=== PATIENT | female | born 1975 | race Caucasian/White ===

== ENCOUNTER 2020-09-30 12:41 | Emergency (ER) | payer MEDICARE ==
[~2020-09-30] VITALS: Ht 177.8 cm; Wt 101.8 kg
[2020-09-30 12:56] VITALS: TEMP 98.8
[2020-09-30] MEDS ORDERED: ZOLOFT 100MG100 MG PO (13:06)
[2020-09-30] MEDS ORDERED: WELLBUTRIN 100100 MG PO (13:07)
[2020-09-30] MEDS ORDERED: ABILIFY5 MG PO (13:07)
[2020-09-30] MEDS ORDERED: IMITREX 5MGNAS NS (13:08)
[2020-09-30] MEDS ORDERED: MAXALT10 MG (13:08)
[2020-09-30] MEDS ORDERED: DEPAKOTE 125MG125 M1 PO (13:08)
[2020-09-30] MEDS ORDERED: IMITREX 6M6 MG/0.5 M SQ (13:09)
[2020-09-30] MEDS ORDERED: DAZIDOX20 MG PO ×2 (13:09→13:31)
[2020-09-30] MEDS ORDERED: PROAIR HFA0.09 MG/AC IH (13:10)
[2020-09-30 13:48] VITALS: BP 123/82; PULSE 87
== END 2020-09-30 13:47 | disposition home or self-care (01) ==
LOC: COL.ER 12:41
DX: G89.29 Other chronic pain (principal); M54.5 Low back pain; F32.9 Major depressive disorder, single episode, unspecified; F41.9 Anxiety disorder, unspecified; F17.200 Nicotine dependence, unspecified, uncomplicated; Z88.6 Allergy status to analgesic agent; Z88.8 Allergy status to other drugs, medicaments and biological substances; Z88.2 Allergy status to sulfonamides

== ENCOUNTER 2020-10-04 10:18 | Emergency (ER) | payer MEDICARE ==
[~2020-10-04] VITALS: Ht 180.3 cm; Wt 101.8 kg
[~2020-10-04 10:18] MED LIST: ABILIFY5 MG PO; DAZIDOX20 MG PO; DEPAKOTE 125MG125 M1 PO; IMITREX 5MGNAS NS; IMITREX 6M6 MG/0.5 M SQ; MAXALT10 MG; PROAIR HFA0.09 MG/AC IH; WELLBUTRIN 100100 MG PO; ZOLOFT 100MG100 MG PO
[2020-10-04 10:22] VITALS: TEMP 98.6
[2020-10-04] MEDS ORDERED: MEDROL 4MG DOSPA4 MG PO (10:33)
[2020-10-04 11:37] VITALS: BP 119/71; PULSE 75
== END 2020-10-04 10:50 | disposition home or self-care (01) ==
LOC: COL.ER 10:18
DX: M54.9 Dorsalgia, unspecified (principal); G89.29 Other chronic pain; Z76.0 Encounter for issue of repeat prescription; Z90.710 Acquired absence of both cervix and uterus; Z88.2 Allergy status to sulfonamides; Z88.6 Allergy status to analgesic agent; Z88.8 Allergy status to other drugs, medicaments and biological substances; Z79.891 Long term (current) use of opiate analgesic

== ENCOUNTER 2021-04-04 12:25 | Emergency (ER) | payer MEDICARE ==
[~2021-04-04] VITALS: Ht 180.3 cm; Wt 97.3 kg
[~2021-04-04 12:25] MED LIST changes: +MEDROL 4MG DOSPA4 MG PO
[2021-04-04 12:33] VITALS: TEMP 97.8
[2021-04-04 12:57] LABS: BASO % 0.2 % (0.0-2.0); EOS # 0.1 (0.0-0.7); EOS % 1.5 % (0-4.0); GRAN # 5.4 (1.4-6.5); GRAN % 63.8 % (42.2-75.2); HEMATOCRIT 43.6 % (37.0-47.0); HEMOGLOBIN 14.7 g/dl (12.5-16.0); LYMPH # 2.3 (1.2-3.4); LYMPH % 27.6 % (20.0-51.0); MEAN CELL VOLUME 91 fl (80.0-100.0); MEAN CORPUSCULAR HEMOGLOBIN 31 pg (27.0-31.0); MEAN CORPUSCULAR HGB CONC 34 g/dl (33.0-37.0); MEAN PLATELET VOLUME 10.6 fl (7.4-10.4); MONO # 0.6 (0.1-0.6); MONO % 6.7 % (1.7-9.3); PLATELET COUNT 345 K/mm3 (130-400); RED BLOOD COUNT 4.82 M/mm3 (4.10-5.30)
[2021-04-04 13:28] LABS: COLLECTION METHOD CLEAN CATCH
[2021-04-04 13:38] LABS: MUCOUS Present /lpf; PH 7 (5-8); URINE APPEARANCE Hazy; URINE BACTERIA Rare /hpf; URINE BILIRUBIN Negative (NEGATIVE); URINE BLOOD Negative (NEGATIVE); URINE COLOR Yellow; URINE GLUCOSE Negative (NEGATIVE); URINE KETONE Negative (NEGATIVE); URINE LEUKOCYTE ESTERASE Negative (NEGATIVE); URINE NITRATE Negative (NEGATIVE); URINE PROTEIN(semi-quant) Negative (NEGATIVE); URINE RBC 0-2 /hpf; URINE UROBILINOGEN Negative (NEGATIVE)
[2021-04-04 14:29] LABS: ALANINE AMINOTRANSFERASE 17 U/L (4-34); ALBUMIN 4.4 gm/dL (3.5-5.0); ALKALINE PHOSPHATASE 104 U/L (50-136); ANION GAP 4 mmol/L (7-16); AST,SGOT 19 U/L (15-37); BILIRUBIN,TOTAL 0.3 mg/dL (0.0-1.0); BLOOD UREA NITROGEN 9 mg/dL (7-17); CALCIUM 9.8 mg/dL (8.4-10.2); CARBON DIOXIDE 24 mmol/L (22-30); CHLORIDE 110 mmol/L (98-107); CREATININE, serum 0.58 (0.52-1.25); GLUCOSE 103 mg/dL (74-106); SODIUM 138 mmol/L (137-145); TOTAL PROTEIN 8.3 gm/dL (6.4-8.2)
[2021-04-04 14:42] LABS: TROPONIN-I < 0.012 ng/mL (0.000-0.035)
[2021-04-04 14:45] LABS: LIPASE 41 U/L (23-300)
[2021-04-04 14:46] LABS: C-REACTIVE PROTEIN < 0.5 mg/dL (0.0-0.9)
[2021-04-04 15:40] VITALS: BP 126/84; PULSE 67
== END 2021-04-04 15:40 | disposition home or self-care (01) ==
LOC: COL.ER 12:25
PROVIDERS: Emergency Medicine; Nurse Practitioner Primary Care
DX: R07.2 Precordial pain (principal); R10.13 Epigastric pain; I25.2 Old myocardial infarction; J44.9 Chronic obstructive pulmonary disease, unspecified; G43.909 Migraine, unspecified, not intractable, without status migrainosus; I50.9 Heart failure, unspecified; F17.210 Nicotine dependence, cigarettes, uncomplicated; Z88.8 Allergy status to other drugs, medicaments and biological substances; Z88.6 Allergy status to analgesic agent; Z79.891 Long term (current) use of opiate analgesic; Z79.899 Other long term (current) drug therapy
CPT/HCPCS: J2405

== ENCOUNTER 2021-05-14 12:36 | Emergency (ER) | payer MEDICARE ==
[~2021-05-14] VITALS: Ht 180.3 cm; Wt 102.3 kg
[2021-05-14 13:10] VITALS: TEMP 98.1
[2021-05-14 14:50] VITALS: BP 108/61; PULSE 80
== END 2021-05-14 14:54 | disposition home or self-care (01) ==
LOC: COL.ER 12:36
DX: S83.91XA Sprain of unspecified site of right knee, initial encounter (principal); F17.210 Nicotine dependence, cigarettes, uncomplicated; W10.9XXA Fall (on) (from) unspecified stairs and steps, initial encounter

== ENCOUNTER 2021-05-23 20:11 | Emergency (ER) | payer MEDICARE ==
[~2021-05-23] VITALS: Ht 180.3 cm; Wt 101.8 kg
[2021-05-23 21:57] VITALS: BP 125/80; PULSE 69; TEMP 98
== END 2021-05-23 21:57 | disposition home or self-care (01) ==
LOC: COL.ER 20:11
DX: S39.012A Strain of muscle, fascia and tendon of lower back, initial encounter (principal); J44.9 Chronic obstructive pulmonary disease, unspecified; I50.9 Heart failure, unspecified; I25.2 Old myocardial infarction; F17.210 Nicotine dependence, cigarettes, uncomplicated; Z88.6 Allergy status to analgesic agent; W10.9XXA Fall (on) (from) unspecified stairs and steps, initial encounter